=== PATIENT | male | born 1955 | race Caucasian/White ===

== ENCOUNTER 2023-02-25 18:04 | Inpatient (IN) | payer MEDICARE ==
[~2023-02-25] VITALS: Ht 165.1 cm; Wt 59.6 kg
--- NOTE | 2023-02-25 22:00 | NUR ---
PT ARRIVED AT THIS TIME, HE AMBULATED TO BATHROOM HAD UNMEASURED VOID AND BM, NOTED HEART RATE UP TO 140/MIN PATIENT BACK TO BED, NOT SUSTAINED.
[2023-02-25 22:28] VITALS: BP 118/79
--- NOTE | 2023-02-25 22:38 | NUR ---
US TECH IN ROOM NOW PER ORDERS, PT RESTING IN BED, 1MG IV MORPHINE ADMINISTERED FOR PAIN 6/10 AT HIS BACK/LEG.HEPARIN DRIP IS RUNNING NOW
--- NOTE | 2023-02-25 23:07 | NUR ---
[facility] CALLED WITH RESULTS AT NURSES STATION.
--- NOTE | 2023-02-25 23:20 | NUR ---
PT REPORTS PAIN 6/10 AT THIS TIME. 1MG IV MORPHINE ADMINISTERED, NEW IV SITE ESTABLISHED RIGHT UPPER FOREARM. PT HAS NO OTHER REQUESTS AT THIS TIME.
[2023-02-25 23:44] VITALS: BP 109/82
[2023-02-26] VITALS (15 sets, daily range): BP systolic 93–123; BP diastolic 73–91
--- NOTE | 2023-02-26 02:41 | NUR ---
PT AWAKE, HE REPORTS HE IS NOT SURE OF A PAIN RATING YET HE JUST WOKE, HE SAID HE NEEDED TO USE THE BATHROOM, BEDSIDE COMMODE PROVIDED TO LIMIT ACTIVITY.
--- NOTE | 2023-02-26 03:03 | NUR ---
PT JUST SAT AT BEDSIDE TO VOID IN URINAL 250ML. PT THEN BACK TO BED, FRESH ICE WATER PROVIDED, WARM BLANKET PROVIDED, PT REPORTS PAIN 6/10 GENERALIZED, BACK/LEG. 2MG IV MORPHINE PRN ADMINISTERED. PT HAS NO OTHER REQUESTS AT THIS TIME.
--- NOTE | 2023-02-26 06:14 | NUR ---
PT ALERT TO RN AT BEDSIDE FOR AM ASSESSMENT, PT REPORTS PAIN IS TOLERABLE BUT IS STARTING TO INCREASE, WILL PROVIDE STEFAN COVERAGE BEFORE SHIFT CHANGE. NO OTHER REQUESTS OR CONCERNS.
--- NOTE | 2023-02-26 07:20 | NUR ---
Spoke with pt and he states he owns his house and lives alone. He has 2 steps into the home and no issues getting in or out. 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 He states the last 4 years he stopped doing everything but caregiving. She now lives in [place]. He was with her, but moved back approximately a year ago. He states his health has declined and he has frequent falls. He is unsure if he would like PT. He is also unsure why he is falling. He has lost 30 pounds over the last two years. He does all his own shopping, cooking, cleaning, and driving. He plans on dc to home. He denies needs. He will consider PT OP for his falls. He has a cane at home. Denies further needs. Denies financial issues.
--- NOTE | 2023-02-26 07:30 | NUR ---
PATIENT REPORT RECIEVED FROM DIGITAL PRODUCTION OPERATOR RN. PATIENT RESTING IN BED. PATIENT ON HEPARIN GTT AT 19UNITS/KG/HR PER HEPARIN GTT ORDERS. PATIENT CALLS APPROPRIATELY. WILL CLOSELY MONTIOR.
--- NOTE | 2023-02-26 09:00 | NUR ---
PATIENTS ASSESSMENT COMPELTED. PATIENT RESTING IN BED. PATIENT REPORTS PAIN THROUGHT HIS CHEST WORSE WITH MOVEMENT, COUGHING, OR DEEP BREATHING. PATIENT DENIES NEEDING ANYTHING FOR PAIN AT THIS TIME. PATIENT REPORTS SOME DISCOMFORT IN HER LEFT LEG. PULSES ARE INTACT AND BILATERAL FEET ARE PINK AND WARM. MD SPOKE WITH DR WARD FROM [facility] ABOUT PATIENTS CONDITION AND PLAN OF CARE. PER MD GOKUL WARD SAID TO CONTINUE TREATMENT WE ARE ALREADY DOING AND NO OTHER RECOMMENDATIONS AT THIS TIME. MD HODGSON UPDATED PATIENT ON PLAN OF CARE. PATIENT REMAINS ON HEPARIN GTT. ALL QUESTIONS ANSERED. CALL LIGHT IN REACH. PATIENT RESTING IN BED AT THIS TIME. WILL ENCOURAGE REST TODAY AND PER MD WILL POSSIBLY START PT/OT TOMORROW.
--- NOTE | 2023-02-26 09:55 | NUR ---
PATIENT TO SIDE OF BED TO USE URINAL, HR 117-120 WITH THIS ACTIVITY. WASHCLOTH USED ON UPPER BODY, FACE AND HANDS. NEW GOWN PROVIDED. PATIENT LYING BACK IN BED AT THIS TIME. CALL LIGHT AND PERSONAL PHONE IN EASY REACH
--- NOTE | 2023-02-26 10:30 | NUR ---
POTASSIUM ORDERED PER MDS VERBAL ORDER. WILL RECHECK LABS THIS AFTERNOON.
--- NOTE | 2023-02-26 12:30 | NUR ---
PRN MORPHINE GIVEN FOR 5/10 PAIN IN HIS CHEST. PATIENT REPORTS PAIN IS WORSE WITH DEEP INSPIRATION AND COUGHING OR MOVEMENT. PATIENT ASSESSMENT COMPELTED AT THSI TIME AND REMAINS UNCHANGED FROM PRIOR IN THE SHIFT. LUNCH PROVIDED. PATIENT HAS DONE WELL SWALLOWING TODAY WITH NO ISSUES. PATIENTS PTT 61.2. PER HEPARIN ORDERS NO CHANGES TO HEPARIN GTT AND NO BOLUS REQUIRED WILL RECHECK PTT IN 6 HOURS. CALL LIGHT IN REACH.
--- NOTE | 2023-02-26 12:34 | EKG ---
[facility] [address] [place], [place] [address] Signed Sinus tachycardia Early repolarization Otherwise normal ECG No previous ECGs available Confirmed by AMINTA HODGSON MD ([id number]) on 02/26/2023 12:34:08 PM Electronically Signed By: AMINTA HODGSON 02/26/23 1234 PATIENT NAME: GEMA LEBLANC Electrocardiogram DATE OF : 57 PHYSICIAN: AMINTA HODGSON REPORT #: [id number] REPORT IS CONFIDENTIAL AND NOT TO BE RELEASED WITHOUT AUTHORIZATION
--- NOTE | 2023-02-26 13:44 | NUR ---
PT IN BED. STATES NOT FEELING GREAT BY ADMITS FEELS BETTER THAN WHEN HE CAME IN. CONSENTED TO PRAYER. PRAYED FOR HEALING, COMFORT AND PEACE.
--- NOTE | 2023-02-26 14:18 | NUR ---
PATIENT RESTING IN BED. PATIENT HAS FAMILY IN AT THE BEDSIDE VISITING AT THIS TIME.
--- NOTE | 2023-02-26 16:00 | NUR ---
PATIENT ASSESSMENT COMPLETED AND REMAISN UNCHNGED. PATIENT HAS LABS DUE TO 1630. PATIENT SITTING UP IN BED AT THIS TIME. PATIENT DENIES ANY NEEDS AT THIS TIME.
--- NOTE | 2023-02-26 16:45 | NUR ---
PRN PAIN MEDICATION ADMINISTERED. MATERIALS INSPECTOR AT THE BEDSIDE TO COMPLETE LABS.
--- NOTE | 2023-02-26 18:03 | NUR ---
PATIENT SITTING UP IN BED EATING DINNER. THIS RN SPOKE WITH MD RESTREPO ABOUT ORAL PAIN MEDICATION FOR PATIENT. SEE NEW ORDERS. NO OTHER NEEDS AT THIS TIME.
--- NOTE | 2023-02-26 18:30 | NUR ---
PATIENT REPORTING PAIN 4/10 ACROSS HIS CHEST, BACK, AND LEG. PRN ORAL MEDICATION ADMINISTERED. PATIENT SITTING UP IN BED EATING DINNER. PATIENT DENIES WANTING A PROTIEN DRINK. PATIENT DENIES ANY OTHER NEEDS AT THIS TIME.
--- NOTE | 2023-02-26 19:30 | NUR ---
SHIFT REPORT RECEIVED. PATIENT RESTING IN BED WITH EYES CLOSED. VS STABLE. CALL LIGHT IN REACH.
--- NOTE | 2023-02-26 21:00 | NUR ---
PATIENT RESTING IN BED. REPORTS BEING TIRED BUT COMFORTABLE. BETTER PAIN CONTROL WITH PO PAIN MEDS. VS STABLE. IV SITE WNL X2; HEPARIN INFUSING PER ORDER. PATIENT DENIES GI UPSET. IS ON BED REST AND USING URNAL AT BEDSIDE. PATIENT DENIES FEELING SOB. LUNG SOUNDS ARE DIM THORUGHOUT. TOLERATING ROOM AIR. LEFT LOWER EXTREMITIY IS COOL TO TOUCH; SLIGHTLY MORE THAN THE RIGHT. CAP REFILL IS <3 SECONDS. UNABLE TO PALPATE PEDAL PULSE. PATIENT HAS FEELING UNCHANGED IN THE LEFT VS. RIGHT LEG.
--- NOTE | 2023-02-26 21:30 | NUR ---
PATIENT STOOD AT BEDSIDE TO USE URNAL; HR INCREASED TO 120'S WITH ACTIVITY. PATIENT APPEARED SLIGHTLY SOB BUT DENIED IT. ASSISTED BACK INTO BED AND POSITIONED FOR COMFORT.
--- NOTE | 2023-02-26 23:15 | NUR ---
PATIENT APPEARS TO BE RESTING COMFORTABLE. EYES CLOSED. VS STABLE. CALL LIGHT IN REACH.
[2023-02-27] VITALS (11 sets, daily range): BP systolic 90–126; BP diastolic 69–98
--- NOTE | 2023-02-27 00:15 | NUR ---
PATIENT RESTING IN BED. FOCUSED ASSESSMENT OF LEFT LOWER EXTREMITY AND RESPIRTORY STATUS IS UNCHANGED. VS STABLE. ALLOWED PATIENT TO REST.
--- NOTE | 2023-02-27 04:00 | NUR ---
PATIENT UP TO USE URNAL. PATIENT'S HR UP TO THE 130'S WITH ACTIVITY BUT PATIENT RECOVERED QUICKLY. PATIENT DENIED ANY NEEDS.
--- NOTE | 2023-02-27 05:15 | NUR ---
PATIENT REPORTS PAIN 7/10; PRN MORPHINE AND OXY PROVIDED. PATIENT'S IV SITE IN RIGHT FOREARM IS PAINFUL TO FLUSH. NEW IV SITE ESTABLISHED AND LABS DRAWN. PATIENT VOIDED TO BEDSIDE. ASSESSMENT UNCHANGED. CALL LIGHT IN REACH.
--- NOTE | 2023-02-27 06:59 | NUR ---
HEPARIN ADJUSTED AND BOLUS GIVEN PER PROTOCOL.
--- NOTE | 2023-02-27 08:04 | NUR ---
Pt wakes easily for breakfast - sitting up in bed posistioning self with grimace in pain. States pain is tolerable after prn administered early in morning. "I hurt in places there arnt names for". Nutritional drink provided. No respiratory distress noted, remains on room air, vital signs wnl.
--- NOTE | 2023-02-27 09:00 | NUR ---
Assessment complete - Pt reports improved pain with inspiration. Left base more dim than right, remains on room air. Sinus Tach on monitor, resting rates in 100's, will continue to monitor. Pedal pulses equal and strong, no redness and minimal swelling noted in left lower leg. Pt reports pain currently /. IV site patent x2, heparin drip remains at 20u/kg/hr, infusing into R wrist IV. Pt able to eat 25% of breakfast with additional ensure shake complete. Updated on todays POC, denies questions or concerns. Call light in reach.
--- NOTE | 2023-02-27 12:01 | NUR ---
PT LOOKING FORWARD TO DISCHARGE. INDICATED WILLINGNESS TO STAY IF MEDICALLY NECESSARY. CONSENTED TO PRAYER. PRAYED FOR ONGOING HEALING.
--- NOTE | 2023-02-27 12:02 | NUR ---
PT SITTING UP IN BED EATING LUNCH - DENIES COMPLAINTS OR CHANGE IN SYMPTOMS AT THIS TIME.
--- NOTE | 2023-02-27 13:18 | NUR ---
SPOKE TO PATIENT ABOUT HIS DISCHARGE PLAN. PATIENT PLANS TO GO HOME TO HIS HOUSE THAT HE OWNS AND LIVES BY HIMSELF. NO CHANGE IN THE DISCHARGE PLAN.
--- NOTE | 2023-02-27 14:11 | NUR ---
HEPARIN DRIP STOPPED PER MD VERBAL ORDERS. APPT WITHIN THERAPUETIC RANGE. WILL START ELIQUIS AT 1600.
[2023-02-27] MEDS ORDERED: ELIQUIS5 M1 PO (15:04)
--- NOTE | 2023-02-27 15:20 | NUR ---
DISCHARGE VITALS CHARTED. PATIENT DRESSED IN PERSONAL CLOTHING, PATIENT STRUGGLED TO PUT HIS OWN SHIRT ON, BUT WAS ABLE TO DO IT HIMSELF. PATIENTS SISTER ON HER WAY TO PICK HIM UP.
--- NOTE | 2023-02-27 15:27 | NUR ---
PATIENT REFUSED SHOWER/BEDBATH. "WOULD RATHER TO WAIT AND SHOWER AT HOME"
== END 2023-02-27 15:49 | disposition home or self-care (01) | DRG 176 ==
LOC: ED 18:04 → CCU 21:24
PROVIDERS: ADMIT Internal Medicine; ATTEND Family Medicine
DX: I26.99 Other pulmonary embolism without acute cor pulmonale (principal); I82.412 Acute embolism and thrombosis of left femoral vein; I82.4Z2 Acute embolism and thrombosis of unspecified deep veins of left distal lower extremity; M54.6 Pain in thoracic spine; R13.10 Dysphagia, unspecified; R63.4 Abnormal weight loss; K22.4 Dyskinesia of esophagus; Z20.822 Contact with and (suspected) exposure to COVID-19; K44.9 Diaphragmatic hernia without obstruction or gangrene; Z79.01 Long term (current) use of anticoagulants; Z91.010 Allergy to peanuts; Z79.899 Other long term (current) drug therapy; Z91.018 Allergy to other foods; W18.11XA Fall from or off toilet without subsequent striking against object, initial encounter
CPT/HCPCS: 36415; 71045; 71260; 80048; 80053; 81001; 82553; 83605; 83735; 84484; 85025; 85379; 85610; 85730; 87040; 93005; 93010; 93970; 99285-25; A9270; J1644; J2270; J7121; Q9967; U0002